=== PATIENT | female | born 1995 | race Caucasian/White ===

== ENCOUNTER 2016-11-20 22:52 | Emergency (ER) | payer MEDICAID ==
[2016-11-20 23:01] VITALS: BP 105/59
== END 2016-11-21 00:45 | disposition left against medical advice (07) ==
LOC: ED 22:52
DX: Z53.21 Procedure and treatment not carried out due to patient leaving prior to being seen by health care provider (principal); M54.5 Low back pain

== ENCOUNTER 2017-10-30 21:34 | Emergency (ER) | payer MEDICAID ==
[~2017-10-30] VITALS: Ht 157.5 cm; Wt 65.8 kg
[2017-10-30 22:32] VITALS: Ht 157.5 cm; Wt 65.8 kg
[2017-10-30 23:09] LABS: BASOPHIL % 0.2 % (0-2); PLATELET COUNT 228 x10^3mcL (130-400)
[2017-10-30 23:11] LABS: RED CELL DISTRIBUTION WIDTH 21.7 % (11.5-14.5)
[2017-10-30 23:25] LABS: rbc morphology (normal/abnorm) ABNORMAL (NORMAL)
[2017-10-30 23:40] LABS: UA SPECIFIC GRAVITY 1.025 (1.005-1.035); microscopic required? YES; urine erythrocyte NEGATIVE (NEGATIVE)
[2017-10-31 00:51] VITALS: BP 113/62
== END 2017-10-31 01:25 | disposition home or self-care (01) ==
LOC: ED 21:34
PROVIDERS: Emergency Medicine
DX: O20.0 Threatened abortion (principal); O23.41 Unspecified infection of urinary tract in pregnancy, first trimester; Z3A.08 8 weeks gestation of pregnancy
CPT/HCPCS: 36415